=== PATIENT | male | born 1985 | race Caucasian/White ===

== ENCOUNTER 2021-05-08 18:59 | Observation (INO) | payer SELFPAY ==
[2021-05-08] MEDS ORDERED: NARCAN 2 MG/2 ML ONE (19:01)
[2021-05-08] MEDS ORDERED: Sodium Chloride 0.9% 1000 ML 1,000 ML ONE (19:12)
[2021-05-08] MEDS ORDERED: Sodium Chloride 0.9% 1000 ML 1,000 ML IV SCH (19:30)
[2021-05-08 19:32] LABS: BASOPHIL % 0.3 % (0.0-0.4); Basophil (Absolute #) 0.03 (0-0.4); Eosinophil % 0.3 % (0.00-5.0); Eosinophil (Absolute #) 0.03 (0-0.5); Hematocrit 48.1 % (42-50); Hemoglobin 16.4 gm/dl (12.5-18.0); Lymphocyte (Absolute #) 1.26 (1.0-4.6); Lymphocytes % 11.5 % (24.0-44.0); Mean Cell Volume 88.4 fl (78-100); Mean Corpuscular Hemoglobin 30.1 pg (26-32); Mean Corpuscular Hgb Concent. 34.1 g/dl (32-36); Mean Platelet Volume 9.9 fl (7.5-11.0); Monocyte (Absolute #) 0.82 (0.0-1.3); Monocytes % 7.5 % (0.0-12.0); Neutrophil % 80.4 % (36.0-66.0); Platelet Count 235 K/mm3 (150-450); Red Blood Count 5.44 M/mm3 (4.1-5.6); Red Cell Distribution Width 12.5 % (11.5-14.0); White Blood Count 10.9 K/mm3 (4.0-10.5)
[2021-05-08 19:41] LABS: Appearance SLIGHTLY CLOUDY (CLEAR); Bacteria RARE /HPF (NEGATIVE); Bilirubin NEGATIVE (NEGATIVE); Blood SMALL Ery/ul (0-5); Glucose NEGATIVE (NEGATIVE); Ketones SMALL (NEGATIVE); Leukocyte Esterase NEGATIVE (NEGATIVE); Mucus SLIGHT /HPF (NEGATIVE); Nitrite NEGATIVE (NEGATIVE); Protein,Urine Dip 30 (Negative); Urobilinogen 2 mg/dL (0-1); WBC 0-2 /HPF (0-5)
[2021-05-08 19:49] LABS: Barbiturate,Urine NEGATIVE (NEGATIVE); Benzodiazepine,Urine NEGATIVE (NEGATIVE); Cocaine,Urine NEGATIVE (NEGATIVE); Methadone,Urine NEGATIVE (NEGATIVE); Opiate,Urine NEGATIVE (NEGATIVE); PCP,Urine NEGATIVE (NEGATIVE); THC,Urine NEGATIVE (NEGATIVE)
[2021-05-08 20:06] LABS: ACETAMINOPHEN < 10 ug/ml (10-30); ETHYL ALCOHOL < 10 mg/dL (0-10); SALICYLATE < 1.0 mg/dL (2-20)
[2021-05-08 20:07] LABS: ALBUMIN 4.8 g/dL (3.5-5.0); ALKALINE PHOSPHATASE 66 U/L (38-126); ANION GAP 16.7 MEQ/L (5-15); BLOOD UREA NITROGEN 20 mg/dL (9-20); CHLORIDE 107 mmol/L (98-107); Calcium 9.6 mg/dL (8.4-10.2); Carbon Dioxide 23 mmol/L (22-30); Creatinine 1 0.97 mg/dL (0.66-1.25); EST GLOMERULAR FILTRATION RATE > 60.0 ML/MIN; Glucose 124 mg/dL (74-106); Potassium 3.8 mmol/L (3.5-5.1); SGOT/AST 37 U/L (17-59); SGPT/ALT 29 U/L (0-50); SODIUM 144 mmol/L (137-145); Total Protein 7.5 g/dL (6.3-8.2)
--- NOTE | 2021-05-08 20:29 | ERPHSYRPT ---
- History of Present Illness Time Seen by Provider: 05/08/21 19:10 Source: patient Exam Limitations: no limitations Patient Subjective Stated Complaint: PT BROUGHT IN BY AMBULANCE. HE WAS FOUND AT PENDING SALE TO [facility] ON GROUND PASSED OUT, EMS AND POLICE CALLED. HE BECAME ALERT AND TALKING THEN WAS GIVEN NARCAN AND NOW IS ALERT BUT NOT TALKING. Triage Nursing Assessment: PT EYES OPEN BUT NOT RESPONDING, PUPILS 4MM, TOUNGUE DRY, SKIN WARM/DRY/PINK. NO EDEMA NOTED, Physician History: Patient is a 35-year-old male presents to our ED via EMS for evaluation of unresponsiveness. Patient was found in front of his [employer] restaurant. EMS states patient encountered police earlier in the day. Please offered to give patient arrival patient declined. Patient states he is from [facility]. Patient came to [place] with a friend. Patient states he has been here for day. Patient has been walking around [facility] with nowhere to go. Patient admitted to using meth. Patient otherwise feels well. Patient states he has p ain at the bottom of his feet at the location of blisters. Patient states he currently does not have a job. Patient denies neck pain. Cervical spine cleared clinically. Patient denies chest pain or shortness of breath. Patient otherwise voices no other complaints or concerns at this time. Timing/Duration: today Severity: moderate Modifying Factors: Improves With: nothing Associated Symptoms: denies symptoms Allergies/Adverse Reactions: UNOBTAINABLE Allergy (Unverified 05/08/21 19:16) Home Medications: Unobtainable 05/08/21 [History] Hx Tetanus, Diphtheria Vaccination/Date Given: No Hx Influenza Vaccination/Date Given: No Hx Pneumococcal Vaccination/Date Given: No Travel Risk - International Travel Have you traveled outside of the country in past 3 weeks: No - Coronavirus Screening Are you exhibiting any of the following symptoms?: No Close contact with a COVID-19 positive Pt in past 14-21 Days: No - Vaccine Status Have you recieved a Covid-19 vaccination: No - Review of Systems Constitutional: No Symptoms, No Fever, No Chills Eyes: No Symptoms Ears, Nose, & Throat: No Symptoms Respiratory: No Symptoms, No Cough, No Dyspnea Cardiac: No Symptoms, No Chest Pain, No Edema, No Syncope Abdominal/Gastrointestinal: No Symptoms, No Abdominal Pain, No Nausea, No Vomiting, No Diarrhea Genitourinary Symptoms: No Symptoms, No Dysuria Musculoskeletal: No Symptoms, No Back Pain, No Neck Pain Skin: No Symptoms, No Rash Neurological: No Symptoms, No Dizziness, No Focal Weakness, No Sensory Changes Psychological: No Symptoms Endocrine: No Symptoms Hematologic/Lymphatic: No Symptoms Immunological/Allergic: No Symptoms All Other Systems: Reviewed and Negative - Past Medical History Pertinent Past Medical History: (UNSURE) - Past Surgical History Past Surgical History: (UNSURE) - Social History Smoking Status: Unknown if ever smoked Exposure to second hand smoke: No (UNSURE) Patient Lives Alone: (UNSURE) - Nursing Vital Signs Nursing Vital Signs: Initial Vital Signs Temperature 98.0 F 05/08/21 19:01 Pulse Rate 114 H 05/08/21 19:01 Respiratory Rate 12 05/08/21 19:01 Blood Pressure 181/104 05/08/21 19:01 O2 Sat by Pulse Oximetry 97 05/08/21 19:01 Pain Scale Pain Intensity 0 - Physical Exam General Appearance: no apparent distress, alert Eye Exam: PERRL/EOMI, eyes nml inspection Ears, Nose, Throat Exam: normal ENT inspection, TMs normal, pharynx normal, moist mucous membranes Neck Exam: normal inspection, non-tender, supple, full range of motion Respiratory Exam: normal breath sounds, lungs clear, No respiratory distress Cardiovascular Exam: regular rate/rhythm, normal heart sounds, normal peripheral pulses Gastrointestinal/Abdomen Exam: soft, normal bowel sounds, No tenderness, No mass Back Exam: normal inspection, normal range of motion, No CVA tenderness, No vertebral tenderness Extremity Exam: normal inspection, normal range of motion, pelvis stable, other (Stairs to the weightbearing portions of both feet. Patient denies trauma.) Neurologic Exam: alert, oriented x 3, cooperative, normal mood/affect, sensation nml, No motor deficits Skin Exam: normal color, warm, dry, No rash Lymphatic Exam: No adenopathy SpO2 Interpretation: normal SpO2: 98 O2 Delivery: Room Air - Course Nursing assessment & vital signs reviewed: Yes EKG Interpreted by Me: RATE (104), Sinus Tach, NORMAL AXIS, NORMAL INTERVALS - Radiology Exams Chest X-ray Interpretation: Interpreted by me (The chest x-ray.) - CT Exams Head CT Interpretation: Tele-radiologist Report (No acute intracranial pathology. However there is a mucous retention cyst or polyp in the right maxillary sinus.) Abdomen/Pelvis CT Interpretation: Tele-radiologist Report (Hepatic steatosis. No acute intra-abdominal or intrapelvic organ injury.) Ordered Tests: Active Orders 24 hr Category Date Time Status EKG-ER Only STAT Care 05/08/21 19:21 Active IV Insertion STAT Care 05/08/21 19:21 Active ABDOMEN AND PELVIS W/0 CONTRAS [CT] Stat Exams 05/08/21 19:26 Taken CHEST 1 VIEW (PORTABLE) Stat Exams 05/08/21 19:23 Taken HEAD WITHOUT CONTRAST [CT] Stat Exams 05/08/21 19:25 Taken ACETAMINOPHEN Stat Lab 05/08/21 19:48 Completed BLOOD CULTURE Stat Lab 05/08/21 19:48 Received CBC W DIFF Stat Lab 05/08/21 19:25 Completed CK (IN-HOUSE) [CK-Creatinine Phosphokinase] Stat Lab 05/08/21 20:05 Completed CMP Stat Lab 05/08/21 19:25 Completed CULTURE,URINE Stat Lab 05/08/21 19:25 Received ETHYL ALCOHOL Stat Lab 05/08/21 19:48 Completed Lactic Acid Stat Lab 05/08/21 19:35 Completed SALICYLATE Stat Lab 05/08/21 19:48 Completed UA W/RFX UR CULTURE Stat Lab 05/08/21 19:25 Completed Urine Triage Profile Stat Lab 05/08/21 19:25 Completed Transfer Order Routine Transfer 05/09/21 Ordered Medication Summary Generic Name Dose Route Start Last Admin Trade Name Freq PRN Reason Stop Dose Admin Sodium Chloride 1,000 mls @ 100 mls/hr 05/08/21 19:30 05/08/21 19:40 Sodium Chloride 0.9% 1000 Ml IV 06/07/21 19:29 100 mls/hr .Q10H FUNMILAYO Administration Discontinued Medications Generic Name Dose Route Start Last Admin Trade Name Freq PRN Reason Stop Dose Admin Sodium Chloride Confirm 05/08/21 19:12 Sodium Chloride 0.9% 1000 Ml Administered 05/08/21 19:13 Dose 1,000 mls @ ud .ROUTE .STK-MED ONE Lab/Rad Data: Laboratory Result Diagrams 05/08/21 19:25 05/08/21 19:25 Laboratory Results 05/08/21 05/08/21 05/08/21 Range/Units 22:50 20:05 19:48 WBC (4.0-10.5) K/mm3 RBC (4.1-5.6) M/mm3 Hgb (12.5-18.0) gm/dl Hct (42-50) % MCV (78-100) fl MCH (26-32) pg MCHC (32-36) g/dl RDW (11.5-14.0) % Plt Count (150-450) K/mm3 MPV (7.5-11.0) fl Gran % (36.0-66.0) % Eos # (Auto) (0-0.5) Absolute Lymphs (auto) (1.0-4.6) Absolute Monos (auto) (0.0-1.3) Lymphocytes % (24.0-44.0) % Monocytes % (0.0-12.0) % Eosinophils % (0.00-5.0) % Basophils % (0.0-0.4) % Absolute Granulocytes (1.4-6.9) Basophils # (0-0.4) Sodium (137-145) mmol/L Potassium (3.5-5.1) mmol/L Chloride (98-107) mmol/L Carbon Dioxide (22-30) mmol/L Anion Gap (5-15) MEQ/L BUN (9-20) mg/dL Creatinine (0.66-1.25) mg/dL Estimated GFR ML/MIN Glucose (74-106) mg/dL Lactic Acid (0.4-2.0) Calcium (8.4-10.2) mg/dL Total Bilirubin (0.2-1.3) mg/dL AST (17-59) U/L ALT (0-50) U/L Alkaline Phosphatase (38-126) U/L Ammonia (9-30) umol/L Creatine Kinase 260 H (55-170) U/L Serum Total Protein (6.3-8.2) g/dL Albumin (3.5-5.0) g/dL Urine Color (YELLOW) Urine Appearance (CLEAR) Urine pH (5-6) Ur Specific [place] (1.005-1.025) Urine Protein (Negative) Urine Ketones (NEGATIVE) Urine Blood (0-5) Brandin/ul Urine Nitrite (NEGATIVE) Urine Bilirubin (NEGATIVE) Urine Urobilinogen (0-1) mg/dL Ur Leukocyte Esterase (NEGATIVE) Urine WBC (Auto) (0-5) /HPF Urine RBC (Auto) (0-2) /HPF U Hyaline Cast (Auto) (0-2) /LPF U Epithel Cells (Auto) (FEW) /HPF Urine Bacteria (Auto) (NEGATIVE) /HPF Urine Mucus (Auto) (NEGATIVE) /HPF Urine Culture Reflexed (NO) Urine Glucose (NEGATIVE) mg/dL Salicylates < 1.0 L (2-20) mg/dL Urine Opiates Level (NEGATIVE) Ur Methadone (NEGATIVE) Acetaminophen < 10 L (10-30) ug/ml Urine Barbiturates (NEGATIVE) Ur Phencyclidine (PCP) (NEGATIVE) Urine Amphetamine (NEGATIVE) U Benzodiazepine Level (NEGATIVE) Urine Cocaine (NEGATIVE) Urine Marijuana (THC) (NEGATIVE) Ethyl Alcohol < 10 (0-10) mg/dL SARS-CoV-2 (PCR) NEGATIVE (NEGATIVE) 05/08/21 05/08/21 05/08/21 Range/Units 19:48 19:35 19:25 WBC (4.0-10.5) K/mm3 RBC (4.1-5.6) M/mm3 Hgb (12.5-18.0) gm/dl Hct (42-50) % MCV (78-100) fl MCH (26-32) pg MCHC (32-36) g/dl RDW (11.5-14.0) % Plt Count (150-450) K/mm3 MPV (7.5-11.0) fl Gran % (36.0-66.0) % Eos # (Auto) (0-0.5) Absolute Lymphs (auto) (1.0-4.6) Absolute Monos (auto) (0.0-1.3) Lymphocytes % (24.0-44.0) % Monocytes % (0.0-12.0) % Eosinophils % (0.00-5.0) % Basophils % (0.0-0.4) % Absolute Granulocytes (1.4-6.9) Basophils # (0-0.4) Sodium (137-145) mmol/L Potassium (3.5-5.1) mmol/L Chloride (98-107) mmol/L Carbon Dioxide (22-30) mmol/L Anion Gap (5-15) MEQ/L BUN (9-20) mg/dL Creatinine (0.66-1.25) mg/dL Estimated GFR ML/MIN Glucose (74-106) mg/dL Lactic Acid 1.2 (0.4-2.0) Calcium (8.4-10.2) mg/dL Total Bilirubin (0.2-1.3) mg/dL AST (17-59) U/L ALT (0-50) U/L Alkaline Phosphatase (38-126) U/L Ammonia 19 (9-30) umol/L Creatine Kinase (55-170) U/L Serum Total Protein (6.3-8.2) g/dL Albumin (3.5-5.0) g/dL Urine Color (YELLOW) Urine Appearance (CLEAR) Urine pH (5-6) Ur Specific [place] (1.005-1.025) Urine Protein (Negative) Urine Ketones (NEGATIVE) Urine Blood (0-5) Brandin/ul Urine Nitrite (NEGATIVE) Urine Bilirubin (NEGATIVE) Urine Urobilinogen (0-1) mg/dL Ur Leukocyte Esterase (NEGATIVE) Urine WBC (Auto) (0-5) /HPF Urine RBC (Auto) (0-2) /HPF U Hyaline Cast (Auto) (0-2) /LPF U Epithel Cells (Auto) (FEW) /HPF Urine Bacteria (Auto) (NEGATIVE) /HPF Urine Mucus (Auto) (NEGATIVE) /HPF Urine Culture Reflexed (NO) Urine Glucose (NEGATIVE) mg/dL Salicylates (2-20) mg/dL Urine Opiates Level NEGATIVE (NEGATIVE) Ur Methadone NEGATIVE (NEGATIVE) Acetaminophen (10-30) ug/ml Urine Barbiturates NEGATIVE (NEGATIVE) Ur Phencyclidine (PCP) NEGATIVE (NEGATIVE) Urine Amphetamine POSITIVE (NEGATIVE) U Benzodiazepine Level NEGATIVE (NEGATIVE) Urine Cocaine NEGATIVE (NEGATIVE) Urine Marijuana (THC) NEGATIVE (NEGATIVE) Ethyl Alcohol (0-10) mg/dL SARS-CoV-2 (PCR) (NEGATIVE) 05/08/21 05/08/21 05/08/21 Range/Units 19:25 19:25 19:25 WBC 10.9 H (4.0-10.5) K/mm3 RBC 5.44 (4.1-5.6) M/mm3 Hgb 16.4 (12.5-18.0) gm/dl Hct 48.1 (42-50) % MCV 88.4 (78-100) fl MCH 30.1 (26-32) pg MCHC 34.1 (32-36) g/dl RDW 12.5 (11.5-14.0) % Plt Count 235 (150-450) K/mm3 MPV 9.9 (7.5-11.0) fl Gran % 80.4 H (36.0-66.0) % Eos # (Auto) 0.03 (0-0.5) Absolute Lymphs (auto) 1.26 (1.0-4.6) Absolute Monos (auto) 0.82 (0.0-1.3) Lymphocytes % 11.5 L (24.0-44.0) % Monocytes % 7.5 (0.0-12.0) % Eosinophils % 0.3 (0.00-5.0) % Basophils % 0.3 (0.0-0.4) % Absolute Granulocytes 8.80 H (1.4-6.9) Basophils # 0.03 (0-0.4) Sodium 144 (137-145) mmol/L Potassium 3.8 (3.5-5.1) mmol/L Chloride 107 (98-107) mmol/L Carbon Dioxide 23 (22-30) mmol/L Anion Gap 16.7 H (5-15) MEQ/L BUN 20 (9-20) mg/dL Creatinine 0.97 (0.66-1.25) mg/dL Estimated GFR > 60.0 ML/MIN Glucose 124 H (74-106) mg/dL Lactic Acid (0.4-2.0) Calcium 9.6 (8.4-10.2) mg/dL Total Bilirubin 0.80 (0.2-1.3) mg/dL AST 37 (17-59) U/L ALT 29 (0-50) U/L Alkaline Phosphatase 66 (38-126) U/L Ammonia (9-30) umol/L Creatine Kinase (55-170) U/L Serum Total Protein 7.5 (6.3-8.2) g/dL Albumin 4.8 (3.5-5.0) g/dL Urine Color YELLOW (YELLOW) Urine Appearance SLIGHTLY CLOUDY (CLEAR) Urine pH 6.0 (5-6) Ur Specific [place] 1.020 (1.005-1.025) Urine Protein 30 (Negative) Urine Ketones SMALL (NEGATIVE) Urine Blood SMALL (0-5) Brandin/ul Urine Nitrite NEGATIVE (NEGATIVE) Urine Bilirubin NEGATIVE (NEGATIVE) Urine Urobilinogen 2 (0-1) mg/dL Ur Leukocyte Esterase NEGATIVE (NEGATIVE) Urine WBC (Auto) 0-2 (0-5) /HPF Urine RBC (Auto) 11-15 (0-2) /HPF U Hyaline Cast (Auto) 3-5 (0-2) /LPF U Epithel Cells (Auto) NONE (FEW) /HPF Urine Bacteria (Auto) RARE (NEGATIVE) /HPF Urine Mucus (Auto) SLIGHT (NEGATIVE) /HPF Urine Culture Reflexed YES (NO) Urine Glucose NEGATIVE (NEGATIVE) mg/dL Salicylates (2-20) mg/dL Urine Opiates Level (NEGATIVE) Ur Methadone (NEGATIVE) Acetaminophen (10-30) ug/ml Urine Barbiturates (NEGATIVE) Ur Phencyclidine (PCP) (NEGATIVE) Urine Amphetamine (NEGATIVE) U Benzodiazepine Level (NEGATIVE) Urine Cocaine (NEGATIVE) Urine Marijuana (THC) (NEGATIVE) Ethyl Alcohol (0-10) mg/dL SARS-CoV-2 (PCR) (NEGATIVE) - Progress Progress: improved Progress Note: Patient reassessed. Repeat neuro exam within normal limits. Patient is lucid. CT scan of head abdomen pelvis are essentially unremarkable. Chest x-ray negative. Labs are essentially normal as well. We will admit patient for observation and work-up for possible syncope. Case discussed with Dr. Lacey who accepts admission to observation. Plan of care discussed with patient he agrees to admission at [facility]. Covid test negative. Admi ssion orders completed. 05/09/21 00:39 Discussed with : Tessy Will see patient in: hospital (observation) Counseled pt/family regarding: lab results, diagnosis, rad results - Departure Departure Disposition: Observation Clinical Impression: Altered mental status, Syncope, Amphetamine use disorder, mild, Microscopic hematuria, Mucous retention cyst, Blister of foot Condition: Stable Critical Care Time: No Referrals: DOCTOR,NO FAMILY [Primary Care Provider] -
[2021-05-08 20:30] LABS: Amphetamine,Urine POSITIVE (NEGATIVE)
[2021-05-09] MEDS ORDERED: MORPHINE SULFATE 2 MG INJ IV PRN (00:52)
[2021-05-09] MEDS ORDERED: Zofran 4 MG/2 ML VIAL IV PRN (00:52)
[2021-05-09] MEDS: Sodium Chloride 0.9% 1000 ML 1,000 ML IV SCH ×3 (03:10→23:24)
[2021-05-09 05:25] LABS: Absolute Neutrophil Ct (ANC) 7.84 (1.4-6.9); BASOPHIL % 0.2 % (0.0-0.4); Basophil (Absolute #) 0.02 (0-0.4); Eosinophil % 0.9 % (0.00-5.0); Eosinophil (Absolute #) 0.11 (0-0.5); Hematocrit 47.1 % (42-50); Hemoglobin 15.7 gm/dl (12.5-18.0); Lymphocyte (Absolute #) 3.25 (1.0-4.6); Lymphocytes % 26.1 % (24.0-44.0); Mean Cell Volume 89.9 fl (78-100); Mean Corpuscular Hgb Concent. 33.3 g/dl (32-36); Monocyte (Absolute #) 1.21 (0.0-1.3); Monocytes % 9.7 % (0.0-12.0); Neutrophil % 63.1 % (36.0-66.0); Platelet Count 215 K/mm3 (150-450); Red Blood Count 5.24 M/mm3 (4.1-5.6); Red Cell Distribution Width 12.8 % (11.5-14.0); White Blood Count 12.4 K/mm3 (4.0-10.5)
[2021-05-09 06:02] LABS: ALBUMIN 4.6 g/dL (3.5-5.0); ALKALINE PHOSPHATASE 58 U/L (38-126); ANION GAP 15.9 MEQ/L (5-15); BLOOD UREA NITROGEN 16 mg/dL (9-20); CHLORIDE 103 mmol/L (98-107); Calcium 9.2 mg/dL (8.4-10.2); Carbon Dioxide 25 mmol/L (22-30); Creatinine 1 0.73 mg/dL (0.66-1.25); EST GLOMERULAR FILTRATION RATE > 60.0 ML/MIN; Glucose 92 mg/dL (74-106); Potassium 3.5 mmol/L (3.5-5.1); SGOT/AST 37 U/L (17-59); SGPT/ALT 27 U/L (0-50); SODIUM 141 mmol/L (137-145); Total Protein 7.6 g/dL (6.3-8.2)
[2021-05-09] MEDS ORDERED: APRESOLINE 20 MG/ML INJ IV PRN (08:23)
--- NOTE | 2021-05-09 08:43 | XRAY ---
Indication: Found unresponsive. Acute mental status change. Multiple contiguous axial images obtained through the head without contrast. Comparison: None Normal appearing brain parenchyma, ventricles, and bony calvarium. 1 cm right maxillary sinus polyp/retention cyst. Remaining visualized paranasal sinuses and mastoid air cells are clear. Impression: Right maxillary sinus polyp/retention cyst. Remaining CT head without contrast exam is normal. Comment: Preliminary interpretation made by [facility]. No critical discrepancy.
--- NOTE | 2021-05-09 08:45 | XRAY ---
Indication: Pneumonia. Found unresponsive. Comparison: None Portable chest demonstrates normal heart, lungs, and bony thorax with a few incidental tiny calcified granulomas.
--- NOTE | 2021-05-09 08:45 | XRAY ---
Indication: Found unresponsive. Acute mental status change. Multiple contiguous axial images obtained through the abdomen and pelvis without contrast. Comparison: None Lung bases demonstrates mild dependent atelectasis. No infiltrate, effusion, or pneumothorax. Heart is not enlarged. Noncontrasted stomach and bowel loops nonobstructed. No free fluid/air. Urinary bladder demonstrates Cespedes balloon catheter in situ. Minimal fatty liver. Remaining gallbladder, pancreas, spleen, adrenal glands, kidneys, ureters, and aorta are unremarkable for noncontrast exam. Osseous structures intact. No ventral or inguinal hernias. Impression: 1. Minimal fatty liver. 2. Remaining CT abdomen/pelvis without contrast exam is negative. Comment: Preliminary interpretation made by [facility]. No critical discrepancy.
--- NOTE | 2021-05-09 09:03 | PCM.HP ---
History of Present Illness - Chief Complaint Chief Complaint: altered mental status History of Present Illness: is a 35 year old male pt with no local MD who was found down outside of [facility] and brought to ER via EMS. He is a convoluted historian. Apparently came to [place] from [facility] to visit a friend; had a disagreement with the friend and "started walking." No hx seizures. Admitted to methamphetamine use. In ER, UDS + for amphetamines. Labs nonacute. CK slightly elevated. CT abd with fatty liver, CT head no acute changes. Admitted for syncope and further workup. He tells me he has a house in [place] but no local MD. He says his kids are with their mom and he does have some depression over that. He denies any health issues. He says he feels like people are against him sometimes. He says that he saw a lady in ER that looked like his brother's but sounded like his brother. He said a person in town was telling him "[employer]... it's at [place]" and someone had a gun at [place] but people don't remember these things. At his friend's house he was watching the [employer] and suddenly it was telling him things and that's when his attitude changed and he was mad at his friend. Denies any suicidal ideation. - Review of Systems Constitutional: Fatigue (x 5-6d at a time) Genitourinary Symptoms: Hematuria (microscopic here; although this is after catheterization) Neurological: Other (syncope) Psychological: Drug Abuse, Anxiety, Depression, No Suicidal Ideations All Other Systems: Reviewed and Negative Medications & Allergies Home Medications: Home Medication List No Reportable Medications [No Reported Medications] 05/09/21 [History Confirmed 05/09/21] Allergies/Adverse Reactions: Allergies Allergy/AdvReac Type Severity Reaction Status Date / Time No Known Allergies Allergy Verified 05/09/21 01:42 - Past Medical History Past Medical History: No Neurological History: No Pertinent History ENT History: No Pertinent History Cardiac History: No Pertinent History Respiratory History: No Pertinent History Endocrine Medical History: No Pertinent History Musculoskelatal History: No Pertinent History GI Medical History: No Pertinent History History: No Pertinent History Pyscho-Social History: No Pertinent History Male Reproductive Disorders: No Pertinent History - Past Surgical History Past Surgical History: Yes Neuro Surgical History: No Pertinent History Cardiac History: No Pertinent History Respiratory Surgery: No Pertinent History GI Surgical History: No Pertinent History Genitourinary Surgical Hx: No Pertinent History Musculskeletal Surgical Hx: Other Male Surgical History: No Pertinent History Other Surgical History: jaw in 2000 - Social History Smoking Status: Heavy tobacco smoker How long have you smoked: 20 years Exposure to second hand smoke: No (UNSURE) Alcohol: Daily Drug Use: methamphetamines - Physical Exam Vital Signs: Vital Signs - 24 hr Temp Pulse Resp BP Pulse Ox 05/09/21 07:44 98.4 F 58 L 14 116/59 99 05/09/21 07:30 100 05/09/21 04:59 98.4 F 62 17 130/68 97 05/09/21 04:21 72 05/09/21 04:00 20 05/09/21 01:02 98.3 F 96 H 20 159/91 96 05/09/21 00:59 96 05/09/21 00:41 98 05/09/21 00:00 81 18 150/73 96 05/08/21 23:00 89 18 161/74 97 05/08/21 22:27 77 17 187/109 97 05/08/21 21:01 87 17 181/96 97 05/08/21 20:00 99.5 F 100 H 16 177/83 98 05/08/21 19:19 99.7 F 05/08/21 19:01 98.0 F 114 H 12 181/104 94 L General Appearance: no apparent distress, alert Neurologic Exam: cooperative, other (fair eye contact) Eye Exam: eyes nml inspection Ears, Nose, Throat Exam: moist mucous membranes Neck Exam: normal inspection, non-tender, No lymphadenopathy Respiratory Exam: normal breath sounds, lungs clear, No crackles/rales, No rhonchi, No wheezing Cardiovascular Exam: regular rate/rhythm, normal heart sounds, No murmur Gastrointestinal/Abdomen Exam: soft, normal bowel sounds, No tenderness, No distention, No mass, No guarding, No rebound Back Exam: normal inspection, No CVA tenderness, No rash Extremity Exam: other (plantar surfaces of feet; L with approx 5x6 cm erythematous area (blister that has been removed); R wtih approx 5x5 cm area on heel with skin peeling off, erythema underneath, no exudates), No swelling Results - Labs Lab/Micro Results: Lab Results-Last 24 Hours 05/08/21 05/08/21 05/08/21 Range/Units 19:25 19:25 19:25 WBC 10.9 H (4.0-10.5) K/mm3 RBC 5.44 (4.1-5.6) M/mm3 Hgb 16.4 (12.5-18.0) gm/dl Hct 48.1 (42-50) % MCV 88.4 (78-100) fl MCH 30.1 (26-32) pg MCHC 34.1 (32-36) g/dl RDW 12.5 (11.5-14.0) % Plt Count 235 (150-450) K/mm3 MPV 9.9 (7.5-11.0) fl Gran % 80.4 H (36.0-66.0) % Eos # (Auto) 0.03 (0-0.5) Absolute Lymphs (auto) 1.26 (1.0-4.6) Absolute Monos (auto) 0.82 (0.0-1.3) Lymphocytes % 11.5 L (24.0-44.0) % Monocytes % 7.5 (0.0-12.0) % Eosinophils % 0.3 (0.00-5.0) % Basophils % 0.3 (0.0-0.4) % Absolute Granulocytes 8.80 H (1.4-6.9) Basophils # 0.03 (0-0.4) Sodium 144 (137-145) mmol/L Potassium 3.8 (3.5-5.1) mmol/L Chloride 107 (98-107) mmol/L Carbon Dioxide 23 (22-30) mmol/L Anion Gap 16.7 H (5-15) MEQ/L BUN 20 (9-20) mg/dL Creatinine 0.97 (0.66-1.25) mg/dL Estimated GFR > 60.0 ML/MIN Glucose 124 H (74-106) mg/dL Lactic Acid (0.4-2.0) Calcium 9.6 (8.4-10.2) mg/dL Total Bilirubin 0.80 (0.2-1.3) mg/dL AST 37 (17-59) U/L ALT 29 (0-50) U/L Alkaline Phosphatase 66 (38-126) U/L Ammonia (9-30) umol/L Creatine Kinase (55-170) U/L Serum Total Protein 7.5 (6.3-8.2) g/dL Albumin 4.8 (3.5-5.0) g/dL Urine Color YELLOW (YELLOW) Urine Appearance SLIGHTLY CLOUDY (CLEAR) Urine pH 6.0 (5-6) Ur Specific [place] 1.020 (1.005-1.025) Urine Protein 30 (Negative) Urine Ketones SMALL (NEGATIVE) Urine Blood SMALL (0-5) Brandin/ul Urine Nitrite NEGATIVE (NEGATIVE) Urine Bilirubin NEGATIVE (NEGATIVE) Urine Urobilinogen 2 (0-1) mg/dL Ur Leukocyte Esterase NEGATIVE (NEGATIVE) Urine WBC (Auto) 0-2 (0-5) /HPF Urine RBC (Auto) 11-15 (0-2) /HPF U Hyaline Cast (Auto) 3-5 (0-2) /LPF U Epithel Cells (Auto) NONE (FEW) /HPF Urine Bacteria (Auto) RARE (NEGATIVE) /HPF Urine Mucus (Auto) SLIGHT (NEGATIVE) /HPF Urine Culture Reflexed YES (NO) Urine Glucose NEGATIVE (NEGATIVE) mg/dL Salicylates (2-20) mg/dL Urine Opiates Level (NEGATIVE) Ur Methadone (NEGATIVE) Acetaminophen (10-30) ug/ml Urine Barbiturates (NEGATIVE) Ur Phencyclidine (PCP) (NEGATIVE) Urine Amphetamine (NEGATIVE) U Benzodiazepine Level (NEGATIVE) Urine Cocaine (NEGATIVE) Urine Marijuana (THC) (NEGATIVE) Ethyl Alcohol (0-10) mg/dL SARS-CoV-2 (PCR) (NEGATIVE) 05/08/21 05/08/21 05/08/21 Range/Units 19:25 19:35 19:48 WBC (4.0-10.5) K/mm3 RBC (4.1-5.6) M/mm3 Hgb (12.5-18.0) gm/dl Hct (42-50) % MCV (78-100) fl MCH (26-32) pg MCHC (32-36) g/dl RDW (11.5-14.0) % Plt Count (150-450) K/mm3 MPV (7.5-11.0) fl Gran % (36.0-66.0) % Eos # (Auto) (0-0.5) Absolute Lymphs (auto) (1.0-4.6) Absolute Monos (auto) (0.0-1.3) Lymphocytes % (24.0-44.0) % Monocytes % (0.0-12.0) % Eosinophils % (0.00-5.0) % Basophils % (0.0-0.4) % Absolute Granulocytes (1.4-6.9) Basophils # (0-0.4) Sodium (137-145) mmol/L Potassium (3.5-5.1) mmol/L Chloride (98-107) mmol/L Carbon Dioxide (22-30) mmol/L Anion Gap (5-15) MEQ/L BUN (9-20) mg/dL Creatinine (0.66-1.25) mg/dL Estimated GFR ML/MIN Glucose (74-106) mg/dL Lactic Acid 1.2 (0.4-2.0) Calcium (8.4-10.2) mg/dL Total Bilirubin (0.2-1.3) mg/dL AST (17-59) U/L ALT (0-50) U/L Alkaline Phosphatase (38-126) U/L Ammonia 19 (9-30) umol/L Creatine Kinase (55-170) U/L Serum Total Protein (6.3-8.2) g/dL Albumin (3.5-5.0) g/dL Urine Color (YELLOW) Urine Appearance (CLEAR) Urine pH (5-6) Ur Specific [place] (1.005-1.025) Urine Protein (Negative) Urine Ketones (NEGATIVE) Urine Blood (0-5) Brandin/ul Urine Nitrite (NEGATIVE) Urine Bilirubin (NEGATIVE) Urine Urobilinogen (0-1) mg/dL Ur Leukocyte Esterase (NEGATIVE) Urine WBC (Auto) (0-5) /HPF Urine RBC (Auto) (0-2) /HPF U Hyaline Cast (Auto) (0-2) /LPF U Epithel Cells (Auto) (FEW) /HPF Urine Bacteria (Auto) (NEGATIVE) /HPF Urine Mucus (Auto) (NEGATIVE) /HPF Urine Culture Reflexed (NO) Urine Glucose (NEGATIVE) mg/dL Salicylates (2-20) mg/dL Urine Opiates Level NEGATIVE (NEGATIVE) Ur Methadone NEGATIVE (NEGATIVE) Acetaminophen (10-30) ug/ml Urine Barbiturates NEGATIVE (NEGATIVE) Ur Phencyclidine (PCP) NEGATIVE (NEGATIVE) Urine Amphetamine POSITIVE (NEGATIVE) U Benzodiazepine Level NEGATIVE (NEGATIVE) Urine Cocaine NEGATIVE (NEGATIVE) Urine Marijuana (THC) NEGATIVE (NEGATIVE) Ethyl Alcohol (0-10) mg/dL SARS-CoV-2 (PCR) (NEGATIVE) 05/08/21 05/08/21 05/08/21 Range/Units 19:48 20:05 22:50 WBC (4.0-10.5) K/mm3 RBC (4.1-5.6) M/mm3 Hgb (12.5-18.0) gm/dl Hct (42-50) % MCV (78-100) fl MCH (26-32) pg MCHC (32-36) g/dl RDW (11.5-14.0) % Plt Count (150-450) K/mm3 MPV (7.5-11.0) fl Gran % (36.0-66.0) % Eos # (Auto) (0-0.5) Absolute Lymphs (auto) (1.0-4.6) Absolute Monos (auto) (0.0-1.3) Lymphocytes % (24.0-44.0) % Monocytes % (0.0-12.0) % Eosinophils % (0.00-5.0) % Basophils % (0.0-0.4) % Absolute Granulocytes (1.4-6.9) Basophils # (0-0.4) Sodium (137-145) mmol/L Potassium (3.5-5.1) mmol/L Chloride (98-107) mmol/L Carbon Dioxide (22-30) mmol/L Anion Gap (5-15) MEQ/L BUN (9-20) mg/dL Creatinine (0.66-1.25) mg/dL Estimated GFR ML/MIN Glucose (74-106) mg/dL Lactic Acid (0.4-2.0) Calcium (8.4-10.2) mg/dL Total Bilirubin (0.2-1.3) mg/dL AST (17-59) U/L ALT (0-50) U/L Alkaline Phosphatase (38-126) U/L Ammonia (9-30) umol/L Creatine Kinase 260 H (55-170) U/L Serum Total Protein (6.3-8.2) g/dL Albumin (3.5-5.0) g/dL Urine Color (YELLOW) Urine Appearance (CLEAR) Urine pH (5-6) Ur Specific [place] (1.005-1.025) Urine Protein (Negative) Urine Ketones (NEGATIVE) Urine Blood (0-5) Brandin/ul Urine Nitrite (NEGATIVE) Urine Bilirubin (NEGATIVE) Urine Urobilinogen (0-1) mg/dL Ur Leukocyte Esterase (NEGATIVE) Urine WBC (Auto) (0-5) /HPF Urine RBC (Auto) (0-2) /HPF U Hyaline Cast (Auto) (0-2) /LPF U Epithel Cells (Auto) (FEW) /HPF Urine Bacteria (Auto) (NEGATIVE) /HPF Urine Mucus (Auto) (NEGATIVE) /HPF Urine Culture Reflexed (NO) Urine Glucose (NEGATIVE) mg/dL Salicylates < 1.0 L (2-20) mg/dL Urine Opiates Level (NEGATIVE) Ur Methadone (NEGATIVE) Acetaminophen < 10 L (10-30) ug/ml Urine Barbiturates (NEGATIVE) Ur Phencyclidine (PCP) (NEGATIVE) Urine Amphetamine (NEGATIVE) U Benzodiazepine Level (NEGATIVE) Urine Cocaine (NEGATIVE) Urine Marijuana (THC) (NEGATIVE) Ethyl Alcohol < 10 (0-10) mg/dL SARS-CoV-2 (PCR) NEGATIVE (NEGATIVE) 05/09/21 05/09/21 Range/Units 04:30 04:30 WBC 12.4 H (4.0-10.5) K/mm3 RBC 5.24 (4.1-5.6) M/mm3 Hgb 15.7 (12.5-18.0) gm/dl Hct 47.1 (42-50) % MCV 89.9 (78-100) fl MCH 30.0 (26-32) pg MCHC 33.3 (32-36) g/dl RDW 12.8 (11.5-14.0) % Plt Count 215 (150-450) K/mm3 MPV 10.0 (7.5-11.0) fl Gran % 63.1 (36.0-66.0) % Eos # (Auto) 0.11 (0-0.5) Absolute Lymphs (auto) 3.25 (1.0-4.6) Absolute Monos (auto) 1.21 (0.0-1.3) Lymphocytes % 26.1 (24.0-44.0) % Monocytes % 9.7 (0.0-12.0) % Eosinophils % 0.9 (0.00-5.0) % Basophils % 0.2 (0.0-0.4) % Absolute Granulocytes 7.84 H (1.4-6.9) Basophils # 0.02 (0-0.4) Sodium 141 (137-145) mmol/L Potassium 3.5 (3.5-5.1) mmol/L Chloride 103 (98-107) mmol/L Carbon Dioxide 25 (22-30) mmol/L Anion Gap 15.9 H (5-15) MEQ/L BUN 16 (9-20) mg/dL Creatinine 0.73 (0.66-1.25) mg/dL Estimated GFR > 60.0 ML/MIN Glucose 92 (74-106) mg/dL Lactic Acid (0.4-2.0) Calcium 9.2 (8.4-10.2) mg/dL Total Bilirubin 0.80 (0.2-1.3) mg/dL AST 37 (17-59) U/L ALT 27 (0-50) U/L Alkaline Phosphatase 58 (38-126) U/L Ammonia (9-30) umol/L Creatine Kinase (55-170) U/L Serum Total Protein 7.6 (6.3-8.2) g/dL Albumin 4.6 (3.5-5.0) g/dL Urine Color (YELLOW) Urine Appearance (CLEAR) Urine pH (5-6) Ur Specific [place] (1.005-1.025) Urine Protein (Negative) Urine Ketones (NEGATIVE) Urine Blood (0-5) Brandin/ul Urine Nitrite (NEGATIVE) Urine Bilirubin (NEGATIVE) Urine Urobilinogen (0-1) mg/dL Ur Leukocyte Esterase (NEGATIVE) Urine WBC (Auto) (0-5) /HPF Urine RBC (Auto) (0-2) /HPF U Hyaline Cast (Auto) (0-2) /LPF U Epithel Cells (Auto) (FEW) /HPF Urine Bacteria (Auto) (NEGATIVE) /HPF Urine Mucus (Auto) (NEGATIVE) /HPF Urine Culture Reflexed (NO) Urine Glucose (NEGATIVE) mg/dL Salicylates (2-20) mg/dL Urine Opiates Level (NEGATIVE) Ur Methadone (NEGATIVE) Acetaminophen (10-30) ug/ml Urine Barbiturates (NEGATIVE) Ur Phencyclidine (PCP) (NEGATIVE) Urine Amphetamine (NEGATIVE) U Benzodiazepine Level (NEGATIVE) Urine Cocaine (NEGATIVE) Urine Marijuana (THC) (NEGATIVE) Ethyl Alcohol (0-10) mg/dL SARS-CoV-2 (PCR) (NEGATIVE) - Radiology Impressions Radiology Exams & Impressions: Radiology Procedures Category Date Time Status ABDOMEN AND PELVIS W/0 CONTRAS [CT] Stat Exams 05/08/21 19:26 Taken CAROTID BILATERAL [US] Routine Exams 05/09/21 08:54 Ordered CHEST 1 VIEW (PORTABLE) Stat Exams 05/08/21 19:23 Taken ECHO W/2D AND DOPPLER [US] Routine Exams 05/09/21 Ordered HEAD WITHOUT CONTRAST [CT] Stat Exams 05/08/21 19:25 Taken MRI BRAIN W & W/O CONTRAST [MRI] Routine Exams 05/09/21 08:54 Ordered Assessment/Plan (1) Syncope Current Visit: Yes Status: Acute Qualifiers: Encounter type: initial encounter Assessment & Plan: vs seizure. Unwitnessed. MRI brain and carotids. Echo. EEG. Code(s): R55 - SYNCOPE AND COLLAPSE (2) Paranoia Current Visit: Yes Status: Acute Assessment & Plan: unsure if acute or chronic. [facility] consult. Checking RPR. Code(s): F22 - DELUSIONAL DISORDERS (3) Blister of foot Current Visit: Yes Status: Acute Qualifiers: Encounter type: initial encounter Laterality: unspecified laterality Qualified Code(s): S90.829A - Blister (nonthermal), unspecified foot, initial encounter Assessment & Plan: bilateral. abx cream. Code(s): S90.829A - BLISTER (NONTHERMAL), UNSPECIFIED FOOT, INITIAL ENCOUNTER (4) Fatigue Current Visit: Yes Status: Chronic Qualifiers: Fatigue type: chronic, unspecified Qualified Code(s): R53.82 - Chronic fatigue, unspecified Assessment & Plan: checking B12, folate, Vit D, and TSH. Code(s): R53.83 - OTHER FATIGUE (5) Microscopic hematuria Current Visit: Yes Status: Acute Assessment & Plan: Will need to be followed up after discharge. Code(s): R31.29 - OTHER MICROSCOPIC HEMATURIA
--- NOTE | 2021-05-09 11:27 | XRAY ---
Indication: Syncope. Drug use. Two-dimensional sonogram and color Doppler imaging of the carotid arteries of the neck performed. Comparison: None Examination of the right carotid circulation demonstrates widely patent common carotid, carotid bulb, internal carotid, and external carotid arteries. PSV of the CCA is 137 cm/s. PSV of the ICA is 112 cm/s. ICA/CCA ratio is 0.8. Normal antegrade vertebral artery flow. Examination of the left breast circulation demonstrate widely patent common carotid, carotid bulb, internal carotid, and external carotid arteries. PSV of the CCA is 132 cm/s. PSV of the ICA is 109 cm/s. ICA/CCA ratio is 0.8. Normal antegrade vertebral artery flow. Impression: Widely patent carotid arteries of the neck bilaterally. Velocity measurements and ratios are negative for hemodynamically significant flow-limiting stenosis.
[2021-05-09 12:21] LABS: Folate (Folic Acid) 19.1 ng/mL (2.76 - >20)
[2021-05-09] MEDS: BACIGUENT 30 GM TOP SCH ×2 (13:01→21:24)
--- NOTE | 2021-05-09 15:11 | XRAY ---
Indication: Syncope. Sagittal, coronal, and axial MRI brain performed without contrast using pre-and post T1, T2, FLAIR, diffusion, and ADC sequences. 18 cc Dotarem contrast use. Comparison: None Ventriculosulcal pattern appears symmetric. Minimal tiny periventricular degenerative microischemia signal bilaterally. No acute intracranial hemorrhage, abnormal extra-axial fluid collection, or mass effect. Diffusion images are negative for restricted signal. Following gadolinium, there is no abnormal enhancing intra-or extra-axial mass. Fourth ventricle is midline without hydrocephalus. 7/8 cranial nerve complex bilaterally symmetric. Normal flow void signal within the major intracerebral circulation. Normal appearing craniocervical junction and sella turcica. Floor of the right maxillary sinus demonstrates 1.5 cm polyp/retention cyst. Remaining paranasal sinuses are clear. Impression: Small right maxillary sinus polyp/retention cyst. Minimal degenerative microischemia. Remaining MRI brain with contrast exam is negative.
[2021-05-09 16:37] LABS: TSH, 3RD Generation 0.921 mIU/L (0.47-4.68)
[2021-05-10] MEDS: Sodium Chloride 0.9% 1000 ML 1,000 ML IV SCH (06:18)
[2021-05-10 07:24] VITALS: BP 121/70; PULSE 50; O2SAT 97
--- NOTE | 2021-05-10 09:12 | PCM.DS ---
Discharge Summary Date of Admission: 05/09/21 00:49 Admitting Physician: JOHN LACEY Consults: Consults on Case 05/09/21 08:56 Consult Tele-Health [Tele-Health Consult] ROUTINE Primary Care Provider: NO FAMILY DOCTOR Allergies Allergies No Known Allergies Allergy (Verified 05/09/21 01:42) Hospital Summary - Hospital Course Hospital Course: patient was seen and managed by Dr Lacey initially but reportedly brought to ER via EMS with altered mental status, there was question of syncope vs seizure. he admitted to methamphetamine abuse. today he denies any visual or auditory hallucination, he is eating well and has no complaints of pain. has had no issues since admission and workup was negative, [facility]. presumably AMS was from drug use. - Vitals & Intake/Output Vital Signs: Vital Signs Temperature 96.6 F 05/10/21 07:23 Pulse Rate 50 L 05/10/21 07:23 Respiratory Rate 17 05/10/21 07:23 Blood Pressure 121/70 05/10/21 07:23 O2 Sat by Pulse Oximetry 97 05/10/21 07:23 Intake & Output: Intake & Output 05/07/21 05/08/21 05/09/21 05/10/21 11:59 11:59 11:59 11:59 Intake Total 1380 4246 Output Total 1050 550 Balance 330 3696 Weight 95.6 kg - Lab Result Diagrams: 05/09/21 04:30 05/09/21 04:30 Lab Results-Last 24 Hrs: Lab Results-Last 24 Hours 05/09/21 05/09/21 05/09/21 Range/Units 04:30 04:30 05:00 Creatine Kinase 396 H (55-170) U/L Vitamin B12 383 (239-931) pg/mL 25-OH Vitamin D Total 40.3 (30-100) ng/mL Folic Acid 19.1 (2.76 - >20) ng/mL TSH 3rd Generation 0.921 (0.47-4.68) mIU/L Micro Results-Entire Visit: Microbiology 05/08/21 19:25 Urine Culture - Preliminary Urine, Void NO GROWTH TO DATE - Radiology Exams Ordered Rad Exams-Entire Visit: Radiology Procedures Category Date Time Status ABDOMEN AND PELVIS W/0 CONTRAS [CT] Stat Exams 05/08/21 19:26 Completed CAROTID BILATERAL [US] Routine Exams 05/09/21 08:54 Completed CHEST 1 VIEW (PORTABLE) Stat Exams 05/08/21 19:23 Completed ECHO W/2D AND DOPPLER [US] Routine Exams 05/09/21 10:16 Taken HEAD WITHOUT CONTRAST [CT] Stat Exams 05/08/21 19:25 Completed MRI BRAIN W & W/O CONTRAST [MRI] Routine Exams 05/09/21 08:54 Completed Discharge Exam General Appearance: no apparent distress, alert Neurologic Exam: alert, oriented x 3, cooperative Respiratory Exam: normal breath sounds, lungs clear, No respiratory distress Cardiovascular Exam: regular rate/rhythm, normal heart sounds Gastrointestinal/Abdomen Exam: soft, No tenderness, No mass Extremity Exam: normal inspection, normal range of motion Skin Exam: normal color, warm, dry Final Diagnosis/Problem List - Final Discharge Diagnosis/Problem (1) Altered mental status Current Visit: Yes Status: Acute Assessment & Plan: appears to be drug related, workup has been negative including brain MRI and carotid dopplers Code(s): R41.82 - ALTERED MENTAL STATUS, UNSPECIFIED (2) Amphetamine use disorder, mild Current Visit: Yes Status: Acute Assessment & Plan: will f/u with as outpatient per their consult Code(s): F15.10 - OTHER STIMULANT ABUSE, UNCOMPLICATED (3) Paranoia Current Visit: Yes Status: Acute Code(s): F22 - DELUSIONAL DISORDERS - Discharge Disposition: Home, Self-Care Condition: Stable Prescriptions: No Action No Reportable Medications [No Reported Medications] Follow up with: DOCTOR,NO FAMILY [Primary Care Provider] -
[2021-05-10] MEDS: BACIGUENT 30 GM TOP SCH (09:18)
[2021-05-10 13:36] LABS: RPR Non Reactive (Non Reactive)
--- NOTE | 2021-05-14 14:05 | ECHO ---
DATE OF PROCEDURE: 05/09/2021 CLINICAL INFORMATION: Syncope. The M-mode 2D, and Doppler echocardiogram including color flow Doppler shows the left ventricle is mildly dilated with a dimension of 6.1 cm. There is no thrombus present. The septal wall thickness is increased at 1.5 cm. The left ventricular posterior wall thickness is increased at 1.2 cm. There is normal contractility of the left ventricle. The ejection fraction is calculated to be 77%. The right ventricle is grossly normal. The left atrium is normal with a dimension of 3.0 cm. The interatrial septum is intact. The right atrium is normal. The aortic valve opens well. There is no aortic regurgitation. There is mitral valve leaflet thickening. There is mild tricuspid regurgitation. The right ventricular systolic pressure is normal at 24 mm of Mercury. The pulmonic valve is not well visualized. The aortic root is normal at 3.1 cm. There is no pericardial effusion present. IMPRESSION: 1) NORMAL CONTRACTILITY OF THE LEFT VENTRICLE. 2) MODERATE ASYMMETRIC LEFT VENTRICULAR HYPERTROPHY. 3) MILD TRICUSPID REGURGITATION. 4) NORMAL RIGHT VENTRICULAR SYSTOLIC PRESSURE.
== END 2021-05-10 10:49 | disposition home or self-care (01) ==
LOC: ED 18:59 → ICU 05-09 00:49
PROVIDERS: ADMIT Family Medicine; ATTEND Family Medicine
DX: R41.82 Altered mental status, unspecified (principal); F15.10 Other stimulant abuse, uncomplicated; F22 Delusional disorders; R55 Syncope and collapse; S90.822A Blister (nonthermal), left foot, initial encounter; S90.821A Blister (nonthermal), right foot, initial encounter; R53.82 Chronic fatigue, unspecified; R31.29 Other microscopic hematuria; Z20.828 Contact with and (suspected) exposure to other viral communicable diseases
CPT/HCPCS: 36000; 36415; 51702; 70450; 70553; 71045; 74176; 80053; 80307; 81001; 82140; 82306; 82550; 82607; 82746; 83605; 84443; 85025; 86592; 87040; 87086; 90791; 93005; 93041; 93268; 93306; 93880; 94760; 94762; 99285; G0378; Q3014; U0003; J2310; A9270-GY; G0480